=== PATIENT | female | born 1950 | race Two or more races ===

== ENCOUNTER 2022-03-30 11:14 | Emergency (ER) | payer OTHER ==
[~2022-03-30] VITALS: Ht 154.9 cm; Wt 66.2 kg
[2022-03-30] MEDS ORDERED: CENTRUM CHEWAB1 EAC1 PO (11:52)
[2022-03-30] MEDS ORDERED: VITAMIN C60 MG PO (11:53)
[2022-03-30] MEDS ORDERED: MEDROLPACK PO (15:36)
[2022-03-30] MEDS ORDERED: METFORMIN HCL500 M4 PO (15:37)
== END 2022-03-30 15:52 | disposition home or self-care (01) ==
LOC: ER 11:14
DX: G51.0 Bell's palsy (principal); I10 Essential (primary) hypertension